=== PATIENT | female | born 1930 | race Caucasian/White ===

== ENCOUNTER 2017-05-19 09:49 | Inpatient (IN) | payer OTHER ==
--- NOTE | 2017-05-19 10:44 | PDOC ---
History of Present Illness <Nasrin Ayoub - Last Filed: 05/19/17 11:17> - General History Source: Patient Exam Limitations: No Limitations <Eddi Nance - Last Filed: 05/19/17 12:40> - General Chief Complaint: Injury Stated Complaint: FALL Time Seen by Provider: 05/19/17 09:56 Past History <Nasrin Ayoub - Last Filed: 05/19/17 11:17> - Past Medical History Anemia: Yes Cancer: Yes (myelodysplastic syndrome) COPD: Yes Psychiatric Problems: Yes (anxeity,depression) - Suicide/Smoking/Psychosocial Hx Smoking History: Unknown if ever smoked Information on smoking cessation initiated: No Hx Alcohol Use: No Drug/Substance Use Hx: No Substance Use Type: None <Eddi Nance - Last Filed: 05/19/17 12:40> - Past Medical History Allergies/Adverse Reactions: Allergies Allergy/AdvReac Type Severity Reaction Status Date / Time No Known Allergies Allergy Verified 05/19/17 10:01 Home Medications: Ambulatory Orders Acetaminophen [Tylenol] 650 mg PO Q6H PRN 05/19/17 Alprazolam [Xanax] 0.25 mg PO Q8H 05/19/17 Budesonide [Pulmicort 0.5 mg Nebulizer -] 1 neb NEB BID 05/19/17 Citalopram Hydrobromide [Celexa -] 5 mg PO BID 05/19/17 Ipratropium [place] [Atrovent Hfa] 2 puff IH BID 05/19/17 Metolazone [Zaroxolyn -] 5 mg PO WE 05/19/17 Potassium Chloride [K-Dur -] 10 meq PO DAILY 05/19/17 Torsemide [Demadex] 10 mg PO DAILY 05/19/17 Review of Systems - Review of Systems Comments:: 05/19/17 11:17 GENERAL/CONSTITUTIONAL: No fever or chills. HEAD, EYES, EARS, NOSE AND THROAT: No change in vision. No ear pain or discharge. No sore throat. CARDIOVASCULAR: No chest pain. +shortness of breath. RESPIRATORY: No cough, wheezing, or hemoptysis. GASTROINTESTINAL: No nausea, vomiting, diarrhea or constipation. GENITOURINARY: No dysuria, frequency, or change in urination. MUSCULOSKELETAL: No joint or muscle swelling or pain. No neck or back pain. SKIN: No rash NEUROLOGIC: No headache, vertigo, loss of consciousness, or change in strength/ sensation. ENDOCRINE: No increased thirst. No abnormal weight change. HEMATOLOGIC/LYMPHATIC: +anemia. ALLERGIC/IMMUNOLOGIC: No hives or skin allergy. <Nasrin Ayoub - Last Filed: 05/19/17 11:17> *Physical Exam - Vital Signs Last Vital Signs Temp Pulse Resp BP Pulse Ox 97.9 F 70 22 123/65 92 L 05/19/17 10:01 05/19/17 10:01 05/19/17 10:01 05/19/17 10:01 05/19/17 10:01 - Physical Exam Comments: 05/19/17 11:15 GENERAL: AAO x2 to name and herself. HEAD: No signs of trauma EYES: PERRLA, EOMI, sclera anicteric, conjunctiva clear ENT:. Dry mucosa NECK: Normal ROM, supple, JVD, or masses LUNGS: Diffuse rales bilaterally. Mildly tachypneic - rr 20s HEART, large systolic murmur. ABDOMEN: Soft, nontender. No guarding, no rebound. No masses EXTREMITIES: No edema. No clubbing or cyanosis. No cords, erythema, or tenderness SKIN: Warm, Dry, normal turgor, no rashes or lesions noted. <Nasrin Ayoub - Last Filed: 05/19/17 11:17> - Vital Signs Last Vital Signs Temp Pulse Resp BP Pulse Ox 97.9 F 70 22 123/65 92 L 05/19/17 10:01 05/19/17 10:01 05/19/17 10:01 05/19/17 10:01 05/19/17 10:01 <Eddi Nance - Last Filed: 05/19/17 12:40> Heart Score/ECG Review #1 ECG reviewed & interpreted by me at: 10:05 05/19/17 10:50 Junctional rhythm 65, right axis deviation, RVH, nonspecific ST and T wave abnormality, no TRAVIS/STD, QTC 395 msec <Eddi Nance - Last Filed: 05/19/17 12:40> ED Treatment Course - LABORATORY CBC & Chemistry Diagram: 05/19/17 10:55 05/19/17 10:55 - RADIOLOGY Radiology Studies Ordered: Category Date Time Status CHEST X-RAY PORTABLE* [RAD] Stat Radiology 05/19/17 10:41 Ordered <Eddi Nance - Last Filed: 05/19/17 12:40> Medical Decision Making - Medical Decision Making 05/19/17 10:43 A portion of this note was documented by scribe services under my direction. I have reviewed the details of the note, within reason, and agree with the documentation with the following case summary and management plan written by me. Patient treated in the ED. Nursing notes are reviewed and incorporated into the medical decision-making. Vital signs reviewed. Peripheral IV access obtained by the nurse, laboratory studies are drawn and sent, reviewed and interpreted by myself. Vital Signs Temp Pulse Resp BP Pulse Ox 97.9 F 70 22 123/65 92 L 05/19/17 10:01 05/19/17 10:01 05/19/17 10:01 05/19/17 10:01 05/19/17 10:01 86 yo F c/ hx MDS, CHF, COPD, anemia with multiple transfusions, UTI, leukopenia , symptomatic anemia Presents from assisted, [facility], for 2 days or shortness of breath and fall. The patient typically is most aware 2-4 L of nasal cannula. However, the last 2 days, the patient has been increasingly more short of breath. The obtain a chest x-ray on Saturday but the patient's son is not aware the results. Noted yesterday, the patient fell and again was found on the ground today area patient herself has some memory impairment and is AAO 2, alert herself and location. The patient reports that she feels anxious but denies any pain or headache at this time. She does report feel short of breath and speak a few sentences. Denies fevers or chills. As of note, the patient was recently hospitalized at [facility] in the beginning of May 2017, she was admitted for anemia and was given a blood transfusion. The patient was also diagnosed urine tract infection and has been placed on antibiotics. Since then, the patient was transferred to stay at the assisted. I had spoken to the patient's son, Brett, who states that the patient is DNR and DNI. We'll work this patient up for CHF exacerbation, rule out myocardial infarction, less likely COPD. We'll also need to value for symptomatically anemia, which after discussion of risks and benefits, the patient's son has consented for blood transfusion if necessary. Ultimately, the patient be mid to the hospital. We'll obtain a head CT to rule out any intracranial injury. 05/19/17 12:[address] reviewed. No acute pathology. Chest x-ray reviewed. Large heart and congestive changes pleural effusion. Possible retrocardiac infiltrate. 05/19/17 12:37 CBC, BMP 05/19/17 10:55 05/19/17 10:55 CMP Sodium 143 mmol/L (136-145) 05/19/17 10:55 Potassium 4.7 mmol/L (3.5-5.1) 05/19/17 10:55 Chloride 103 mmol/L (98-107) 05/19/17 10:55 Carbon Dioxide 35 mmol/L (21-32) H 05/19/17 10:55 Anion Gap 5 (8-16) L 05/19/17 10:55 BUN 45 mg/dL (7-18) H 05/19/17 10:55 Creatinine 1.2 mg/dL (0.55-1.02) H 05/19/17 10:55 Creat Clearance w eGFR 42.40 (>60) 05/19/17 10:55 Random Glucose 110 mg/dL (74-106) H 05/19/17 10:55 Lactic Acid 1.4 mmol/L (0.0-2.0) 05/19/17 10:55 Calcium 8.6 mg/dL (8.5-10.1) 05/19/17 10:55 Phosphorus 3.9 mg/dL (2.5-4.9) 05/19/17 10:55 Magnesium 2.2 mg/dL (1.8-2.4) 05/19/17 10:55 Total Bilirubin 0.4 mg/dL (0.2-1.0) 05/19/17 10:55 AST 19 U/L (15-37) 05/19/17 10:55 ALT 15 U/L (12-78) 05/19/17 10:55 Alkaline Phosphatase 62 U/L (45-117) 05/19/17 10:55 Creatine Kinase 49 IU/L (26-192) 05/19/17 10:55 Troponin I 0.02 ng/ml (0.00-0.05) 05/19/17 10:55 B-Natriuretic Peptide 9544.70 pg/ml (5-450) H 05/19/17 10:55 Total Protein 7.4 g/dl (6.4-8.2) 05/19/17 10:55 Albumin 3.2 g/dl (3.4-5.0) L 05/19/17 10:55 Urine Test Results Urine Color Ltyellow 05/19/17 11:21 Urine Appearance Slcloudy 05/19/17 11:21 Urine pH 5.0 (5.0-8.0) 05/19/17 11:21 Ur Specific [place] 1.012 (1.001-1.035) 05/19/17 11:21 Urine Protein Negative (NEGATIVE) 05/19/17 11:21 Urine Glucose (UA) 1+ (NEGATIVE) H 05/19/17 11:21 Urine Ketones Negative (NEGATIVE) 05/19/17 11:21 Urine Blood 1+ (NEGATIVE) H 05/19/17 11:21 Urine Nitrite Negative (NEGATIVE) 05/19/17 11:21 Urine Bilirubin Negative (NEGATIVE) 05/19/17 11:21 Ur Leukocyte Esterase Negative (NEGATIVE) 05/19/17 11:21 Ur Epithelial Cells Rare /HPF (FEW) 05/19/17 11:21 Urine Mucus Rare 05/19/17 11:21 Patient's venous gas demonstrates hypercarbic acidosis. Given her history of COPD, vancomycin, Zosyn, Solu-Medrol, albuterol was given. In addition, infiltrate may potentially reflect pneumonia. Patient was deferred on given IV Lasix given her severe aortic stenosis and the patient may potentially be preload dependent. We'll defer on inpatient team and cardiology to make decision regarding diuresis. Head CT is negative. Case was discussed with Dr. Gómez accepts the patient for telemetry admission. Case discussed in detail with admitting physician including history, physical exam and ancillary studies. Admitting physician has assumed care for the patient, will follow all pending diagnostics and will complete the evaluation and treatment. <Eddi Nance - Last Filed: 05/19/17 12:40> *DC/Admit/Observation/Transfer <Nasrin Ayoub - Last Filed: 05/19/17 11:17> - Discharge Dispostion Admit: Yes <Eddi Nance - Last Filed: 05/19/17 12:40> Diagnosis at time of Disposition: CHF (congestive heart failure) Qualifiers: Heart failure type: unspecified Heart failure chronicity: unspecified Qualified Code(s): I50.9 - Heart failure, unspecified COPD (chronic obstructive pulmonary disease) Qualifiers: COPD type: unspecified COPD Qualified Code(s): J44.9 - Chronic obstructive pulmonary disease, unspecified Aortic stenosis Qualifiers: Cardiac valve disease etiology: etiology unspecified Qualified Code(s): I35.0 - Nonrheumatic aortic (valve) stenosis Pneumonia Qualifiers: Pneumonia type: due to unspecified organism Laterality: unspecified laterality Lung location: unspecified part of lung Qualified Code(s): J18.9 - Pneumonia, unspecified organism - Discharge Dispostion Condition at time of disposition: Guarded
[2017-05-19 11:29] LABS: BASO % 1.7 % (0-2.0); EOS % 0.7 % (0-4.5); HEMATOCRIT 26.9 % (32.4-45.2); HEMOGLOBIN 8.3 GM/dL (10.7-15.3); LYMPH % 8.2 % (8-40); MCH 26.7 pg (25.7-33.7); MEAN CELL VOLUME 86.2 fl (80-96); MEAN PLT VOLUME 8.3 fl (7.5-11.1); MONO % 12.7 % (3.8-10.2); NEUT % 76.7 % (42.8-82.8); PLATELET COUNT 235 K/MM3 (134-434); RBC 3.12 M/mm3 (3.60-5.2); RDW 19.3 % (11.6-15.6); WHITE BLOOD COUNT 4.9 K/mm3 (4.0-10.0)
[2017-05-19 11:32] LABS: URINE APPEARANCE SLCLOUDY; URINE BILIRUBIN NEGATIVE (NEGATIVE); URINE BLOOD 1+ (NEGATIVE); URINE COLOR LTYELLOW; URINE GLUCOSE (UA) 1+ (NEGATIVE); URINE KETONE NEGATIVE (NEGATIVE); URINE LEUK ESTERASE NEGATIVE (NEGATIVE); URINE NITRITE NEGATIVE (NEGATIVE); URINE PROTEIN NEGATIVE (NEGATIVE)
[2017-05-19 11:40] LABS: VENOUS PC02 81.9 mmHg (38-52); VENOUS PH 7.25 (7.32-7.42); VENOUS PO2 31.5 mmHg (28-48)
[2017-05-19 11:42] LABS: INR 1.16 (0.82-1.09); PROTHROMBIN TIME (PATIENT) 13.1 SEC (9.98-11.88)
[2017-05-19 11:43] LABS: EPI CELLS RARE /HPF (FEW); URINE HYALINE CAST 22 /lpf; URINE MUCUS RARE
[2017-05-19 11:45] LABS: ACTIVATED PTT 32.5 SECONDS (26.9-34.4)
[2017-05-19] MEDS ORDERED: ALBUTEROL SO4 0.083% IH SOL 2.5 MG/3 ML VIAL.NEB. NEB ONE ×2 (11:51→11:55)
[2017-05-19] MEDS ORDERED: methylPREDNISolone NA SUCC 125 MG/2 ML VIAL IVPB ONE (11:51)
[2017-05-19 11:53] LABS: ALBUMIN 3.2 g/dl (3.4-5.0); ANION GAP 5 (8-16); BILIRUBIN,TOTAL 0.4 mg/dL (0.2-1.0); BLOOD UREA NITROGEN 45 mg/dL (7-18); CALCIUM 8.6 mg/dL (8.5-10.1); CHLORIDE 103 mmol/L (98-107); CO2 35 mmol/L (21-32); CREATININE 1.2 mg/dL (0.55-1.02); GLUCOSE,RANDOM 110 mg/dL (74-106); MAGNESIUM 2.2 mg/dL (1.8-2.4); PHOSPHOROUS 3.9 mg/dL (2.5-4.9); POTASSIUM 4.7 mmol/L (3.5-5.1); SGOT/AST 19 U/L (15-37); SGPT/ALT 15 U/L (12-78); SODIUM 143 mmol/L (136-145); TOT PROT 7.4 g/dl (6.4-8.2)
[2017-05-19 11:55] LABS: ALK PHOS 62 U/L (45-117)
[2017-05-19] MEDS ORDERED: VANCOMYCIN 1,000 MG in DEXTROSE 5%-WATER - 250 ML IVPB ONE (11:55)
[2017-05-19] MEDS ORDERED: methylPREDNISolone NA SUCC 125 MG/2 ML VIAL ONE (11:56)
[2017-05-19] MEDS ORDERED: VANCOMYCIN 1 GRAM (PRE-DOCKED) 1,000 MG/250 ML BAG IVPB ONE (11:56)
[2017-05-19] MEDS ORDERED: PIPERACILLIN/TAZOB 3.375 GM 3.375 GM/50 ML BAG IVPB ONE (11:56)
[2017-05-19] MEDS ORDERED: PIPERACIL/TAZOB 3.375 GM 3.375 GM/50 ML PREMIX IVPB ONE (12:30)
--- NOTE | 2017-05-19 15:42 | HP ---
CHIEF COMPLAINT: Shortness of breath PCP: Dr. Esteban Roblero, [place] Heme/Onc: Dr. Coreas HISTORY OF PRESENT ILLNESS: 86 year-old female with a PMH significant for diastolic heart failure, severe aortic stenosis, COPD, myelodysplastic syndrome (multiple transfusions, most recent 05/02/[address], [facility]), recurrent UTIs, anxiety and depression. Hospitalized at [facility] first week of this month, then at [facility] for one week. Over the past two days she has been experiencing increased SOB and has had three falls according to her son. ER course was notable for: (1) SpO2 92% room air (2) CXR: congestive changes, possible infiltrate left base, bilateral pleural effusions (3) BNP 9544 Recent Travel: No PAST MEDICAL HISTORY: Diastolic heart failure Severe aortic stenosis COPD Anemia s/p multiple transfusions Myelodysplastic syndrome Recurrent UTIs PAST SURGICAL HISTORY: Social History: Smoking: quit 6 years ago Alcohol: no Drugs: no Family History: Allergies No Known Allergies Allergy (Verified 05/19/17 10:01) HOME MEDICATIONS: Home Medications Medication Instructions Recorded Acetaminophen [Tylenol] 650 mg PO Q6H PRN 05/19/17 Alprazolam [Xanax] 0.25 mg PO Q8H 05/19/17 Budesonide [Pulmicort 0.5 mg 1 neb NEB BID 05/19/17 Nebulizer -] Citalopram Hydrobromide [Celexa -] 5 mg PO BID 05/19/17 Ipratropium [place] [Atrovent Hfa] 2 puff IH BID 05/19/17 Metolazone [Zaroxolyn -] 5 mg PO WE 05/19/17 Potassium Chloride [K-Dur -] 10 meq PO DAILY 05/19/17 Torsemide [Demadex] 10 mg PO DAILY 05/19/17 REVIEW OF SYSTEMS CONSTITUTIONAL: Absent: fever, chills, diaphoresis, generalized weakness, malaise, loss of appetite, weight change HEENT: Absent: rhinorrhea, nasal congestion, throat pain, throat swelling, difficulty swallowing, mouth swelling, ear pain, eye pain, visual changes CARDIOVASCULAR: Absent: chest pain, syncope, palpitations, irregular heart rate, lightheadedness , peripheral edema RESPIRATORY: Absent: cough, shortness of breath, dyspnea with exertion, orthopnea, wheezing, stridor, hemoptysis GASTROINTESTINAL: Absent: abdominal pain, abdominal distension, nausea, vomiting, diarrhea, constipation, melena, hematochezia GENITOURINARY: Absent: dysuria, frequency, urgency, hesitancy, hematuria, flank pain, genital pain MUSCULOSKELETAL: Absent: myalgia, arthralgia, joint swelling, back pain, neck pain SKIN: Absent: rash, itching, pallor HEMATOLOGIC/IMMUNOLOGIC: Absent: easy bleeding, easy bruising, lymphadenopathy, frequent infections ENDOCRINE: Absent: unexplained weight gain, unexplained weight loss, heat intolerance, cold intolerance NEUROLOGIC: Absent: headache, focal weakness or paresthesias, dizziness, unsteady gait, seizure, mental status changes, bladder or bowel incontinence PSYCHIATRIC: Absent: anxiety, depression, suicidal or homicidal ideation, hallucinations. PHYSICAL EXAMINATION Vital Signs - 24 hr 05/19/17 05/19/17 05/19/17 10:01 10:15 13:17 Temperature 97.9 F Pulse Rate 70 Pulse Rate [ 62 Apical] Respiratory 22 20 Rate Blood Pressure 123/65 Blood Pressure 135/62 [Left Arm] O2 Sat by Pulse 92 L 93 L 93 L Oximetry (%) GENERAL: Awake, alert, and fully oriented, in no acute distress. HEAD: Normal with no signs of trauma. EYES: Pupils equal, round and reactive to light, extraocular movements intact, sclera anicteric, conjunctiva clear. No lid lag. EARS, NOSE, THROAT: Ears normal, nares patent, oropharynx clear without exudates. Moist mucous membranes. NECK: Normal range of motion, supple without lymphadenopathy, JVD, or masses. LUNGS: Breath sounds equal, clear to auscultation bilaterally. No wheezes, and no crackles. No accessory muscle use. HEART: Regular rate and rhythm, normal S1 and S2 without murmur, rub or gallop. ABDOMEN: Soft, nontender, not distended, normoactive bowel sounds, no guarding, no rebound, no masses. No hepatomegaly or splenomegaly. MUSCULOSKELETAL: Normal range of motion at all joints. No bony deformities or tenderness. No CVA tenderness. UPPER EXTREMITIES: 2+ pulses, warm, well-perfused. No cyanosis. No clubbing. No peripheral edema. LOWER EXTREMITIES: 2+ pulses, warm, well-perfused. No calf tenderness. Trace bilateral edema NEUROLOGICAL: Cranial nerves II-XII intact. Normal speech. Normal gait. PSYCHIATRIC: Cooperative. Good eye contact. Appropriate mood and affect. SKIN: Warm, dry, normal turgor, no rashes or lesions noted, normal capillary refill. Laboratory Results - last 24 hr 05/19/17 05/19/17 05/19/17 10:55 10:55 10:55 WBC 4.9 RBC 3.12 L Hgb 8.3 L Hct 26.9 L MCV 86.2 MCH 26.7 MCHC 31.0 L RDW 19.3 H Plt Count 235 MPV 8.3 Neutrophils % 76.7 Lymphocytes % 8.2 Monocytes % 12.7 H Eosinophils % 0.7 Basophils % 1.7 PT with INR 13.10 H INR 1.16 H PTT (Actin FS) 32.5 VBG pH POC VBG pCO2 POC VBG pO2 Mixed VBG HCO3 Sodium 143 Potassium 4.7 Chloride 103 Carbon Dioxide 35 H Anion Gap 5 L BUN 45 H Creatinine 1.2 H Creat Clearance w eGFR 42.40 Random Glucose 110 H Lactic Acid Calcium 8.6 Phosphorus 3.9 Magnesium 2.2 Total Bilirubin 0.4 AST 19 ALT 15 Alkaline Phosphatase 62 Creatine Kinase 49 Troponin I 0.02 B-Natriuretic Peptide 9544.70 H Total Protein 7.4 Albumin 3.2 L Urine Color Urine Appearance Urine pH Ur Specific [place] Urine Protein Urine Glucose (UA) Urine Ketones Urine Blood Urine Nitrite Urine Bilirubin Urine Urobilinogen Ur Leukocyte Esterase Urine WBC (Auto) Urine RBC (Auto) Ur Epithelial Cells Hyaline Casts Urine Mucus Blood Type Antibody Screen 05/19/17 05/19/17 05/19/17 10:55 10:55 10:55 WBC RBC Hgb Hct MCV MCH MCHC RDW Plt Count MPV Neutrophils % Lymphocytes % Monocytes % Eosinophils % Basophils % PT with INR INR PTT (Actin FS) VBG pH 7.25 L POC VBG pCO2 81.9 H* POC VBG pO2 31.5 Mixed VBG HCO3 34.5 H Sodium Potassium Chloride Carbon Dioxide Anion Gap BUN Creatinine Creat Clearance w eGFR Random Glucose Lactic Acid 1.4 Calcium Phosphorus Magnesium Total Bilirubin AST ALT Alkaline Phosphatase Creatine Kinase Troponin I B-Natriuretic Peptide Total Protein Albumin Urine Color Urine Appearance Urine pH Ur Specific [place] Urine Protein Urine Glucose (UA) Urine Ketones Urine Blood Urine Nitrite Urine Bilirubin Urine Urobilinogen Ur Leukocyte Esterase Urine WBC (Auto) Urine RBC (Auto) Ur Epithelial Cells Hyaline Casts Urine Mucus Blood Type A POSITIVE Antibody Screen Negative 05/19/17 11:21 WBC RBC Hgb Hct MCV MCH MCHC RDW Plt Count MPV Neutrophils % Lymphocytes % Monocytes % Eosinophils % Basophils % PT with INR INR PTT (Actin FS) VBG pH POC VBG pCO2 POC VBG pO2 Mixed VBG HCO3 Sodium Potassium Chloride Carbon Dioxide Anion Gap BUN Creatinine Creat Clearance w eGFR Random Glucose Lactic Acid Calcium Phosphorus Magnesium Total Bilirubin AST ALT Alkaline Phosphatase Creatine Kinase Troponin I B-Natriuretic Peptide Total Protein Albumin Urine Color Ltyellow Urine Appearance Slcloudy Urine pH 5.0 Ur Specific [place] 1.012 Urine Protein Negative Urine Glucose (UA) 1+ H Urine Ketones Negative Urine Blood 1+ H Urine Nitrite Negative Urine Bilirubin Negative Urine Urobilinogen 2.0 H Ur Leukocyte Esterase Negative Urine WBC (Auto) 1 Urine RBC (Auto) 1 Ur Epithelial Cells Rare Hyaline Casts 22 Urine Mucus Rare Blood Type Antibody Screen ASSESSMENT/PLAN: 86 year-old female with a PMH significant for heart failure, COPD, anemia requiring multiple transfusions, myelodysplastic syndrome, recurrent UTIs, anxiety and depression. Admitted for respiratory failure, acute on chronic diastolic heart failure, newly diagnosed afib, possible pneumonia. Hypercapneic hypoxic respiratory failure --multifactorial: heart failure v. pneumonia v. COPD --AB.32/67.5/55/86% on 3L; RR 50 --start BiPAP Acute on chronic diastolic heart failure Severe aortic stenosis --congestive changes and pleural fluid on CXR --BNP 9544 --Echo ordered --Lasix IV 40mg x 1; welsh; strict I&Os; daily weights --cardiology consult Newly diagnosed atrial fibrillation --per son, no previous history but he does recall patient being on coumadin for a short period of time 3 years ago?? --need to reach PCP/get [facility] records in morning for better history --heparin drip started r/o Pneumonia --CXR: questionable infiltrate left base --hospitalized within the last three weeks --vanc x 1 and zosyn x 1 in ED --afebrile, no leukocytosis; no further abx for now --ID consult COPD --duonebs Myelodysplastic syndrome Anemia --Hgb 8.3, baseline not known --need to review records Recurrent UTIs --UA negative Anxiety/depression --celexa, xanax 0.25mg TID PRN FEN Fluids: PO intake adequate Electrolytes: replete as indicated Nutrition: NPO for now pending improvement in respiratory status DVT prophylaxis: heparin drip Physical therapy Dispo: continues to require inpatient care. DNR/DNI. Arden West is HCP. Visit type - Emergency Visit Emergency Visit: Yes ED Registration Date: 05/19/17 Care time: The patient presented to the Emergency Department on the above date and was hospitalized for further evaluation of their emergent condition. - New Patient This patient is new to me today: Yes Date on this admission: 05/19/17 - Critical Care Critical Care patient: Yes Total Critical Care Time (in minutes): 90 Critical Care Statement: The care of this patient involved high complexity decision making to prevent further life threatening deterioration of the patient 's condition and/or to evaluate & treat vital organ system(s) failure or risk of failure. Hospitalist Screening - Colonoscopy Questionnaire Colonoscopy Questionnaire: Colonoscopy Questionnaire - Patient: 50 - 75 years old and never had a screening colonoscopy: No History of colon or rectal polyps, or CA: No History of IBD, Crohn's disease or UC: No History of abdominal radiation therapy as a child: No - Relative: 1 with colon or rectal CA, or polyps at age 60 or younger: No Colon or rectal CA diagnosed at age 45 or younger: No Multiple relatives with colon or rectal CA: No - Outcome: Screening Result: Negative Screen
[2017-05-19 15:52] VITALS: BMI 21.9
[2017-05-19] MEDS ORDERED: ALBUTEROL SO4 2.5/IPRATROPIUM 0.5 INH SOL 3 ML VIAL.NEB. NEB STA (16:21)
[2017-05-19 17:00] LABS: ARTERIAL BLD GAS O2 SATURATION 86.7 % (90-98.9); ARTERIAL BLOOD GAS BASE EXCESS 6.1 meq/l (-2-2); ARTERIAL BLOOD GAS PO2 55.3 mmHg (68-100); ARTERIAL BLOOD GAS pH 7.32 (7.35-7.45)
[2017-05-19 17:02] LABS: ALLENS TEST POSITIVE
[2017-05-19] MEDS ORDERED: FUROSEMIDE 40 MG/4 ML INJECTABLE VIAL IVPUSH ONE (17:06)
[2017-05-19 17:13] LABS: ARTERIAL BLOOD GAS PCO2 67.5 mmHg (35-45)
[2017-05-19] MEDS: ALPRAZolam 0.25 MG TABLET PO SCH ×2 (17:15→22:00)
--- NOTE | 2017-05-19 17:36 | EKG ---
Test Reason : Blood Pressure : / mmHG Vent. Rate : 065 BPM Atrial Rate : 258 BPM P-R Int : 000 ms QRS Dur : 088 ms QT Int : 380 ms P-R-T Axes : 000 149 -16 degrees QTc Int : 395 ms ;UNDETERMINED RHYTHM; R/O ATRIAL FIBRILLATION WITH SLOW VENTRICULAR RESPONSE.; OCCASIONAL PVCS. BASELINE ARTIFACT. RIGHT AXIS DEVIATION POSSIBLE RIGHT VENTRICULAR HYPERTROPHY NONSPECIFIC ST AND T WAVE ABNORMALITY ABNORMAL ECG NO PREVIOUS ECGS AVAILABLE Confirmed by SEBASTIÁN MACK MD ([id number]) on 05/19/2017 5:35:35 PM Referred By: Confirmed By:SEBASTIÁN MACK MD
[2017-05-19] MEDS ORDERED: HEPARIN NA (PORCINE) 5,000 UNITS/ML 1ML VIAL IVPUSH PRN ×2 (18:41)
[2017-05-19] MEDS ORDERED: HEPARIN NA (PORCINE) 5,000 UNITS/ML 1ML VIAL IVPUSH STA (18:43)
[2017-05-19] MEDS ORDERED: HEPARIN INFUSION - 25,000 UNITS/500 ML INFUS.BAG IVPB SCH (18:45)
[2017-05-19] MEDS: ALBUTEROL SO4 2.5/IPRATROPIUM 0.5 INH SOL 3 ML VIAL.NEB. NEB SCH ×2 (20:35→23:51)
[2017-05-19 20:52] LABS: ARTERIAL BLD GAS O2 SATURATION 98.6 % (90-98.9); ARTERIAL BLOOD GAS BASE EXCESS 6.5 meq/l (-2-2); ARTERIAL BLOOD GAS PCO2 74.9 mmHg (35-45); ARTERIAL BLOOD GAS pH 7.28 (7.35-7.45)
[2017-05-19 20:54] LABS: ALLENS TEST POSITIVE
[2017-05-19] MEDS ORDERED: HEPARIN NA (PORCINE) 5,000 UNITS/ML 1ML VIAL SQ SCH (22:00)
[2017-05-19] MEDS: CITALOPRAM HYDROBROMIDE 10 MG TABLET (FP) PO SCH (22:00)
[2017-05-19 23:22] LABS: ARTERIAL BLD GAS O2 SATURATION 98.2 % (90-98.9); ARTERIAL BLOOD GAS BASE EXCESS 6.8 meq/l (-2-2); ARTERIAL BLOOD GAS pH 7.27 (7.35-7.45)
[2017-05-19 23:24] LABS: ALLENS TEST POSITIVE
[2017-05-19 23:29] LABS: ARTERIAL BLOOD GAS PCO2 77.1 mmHg (35-45)
[2017-05-20] MEDS: ALPRAZolam 0.25 MG TABLET PO SCH ×4 (01:08→21:04)
[2017-05-20] MEDS: ALBUTEROL SO4 2.5/IPRATROPIUM 0.5 INH SOL 3 ML VIAL.NEB. NEB SCH ×5 (04:25→20:40)
[2017-05-20 07:55] LABS: BASO % 0.5 % (0-2.0); EOS % 0.1 % (0-4.5); HEMATOCRIT 23.8 % (32.4-45.2); HEMOGLOBIN 7.5 GM/dL (10.7-15.3); LYMPH % 8.3 % (8-40); MCH 26.9 pg (25.7-33.7); MCHC 31.7 g/dl (32.0-36.0); MEAN PLT VOLUME 8.5 fl (7.5-11.1); MONO % 8.7 % (3.8-10.2); NEUT % 82.4 % (42.8-82.8); PLATELET COUNT 259 K/MM3 (134-434); RDW 18.9 % (11.6-15.6); WHITE BLOOD COUNT 4.6 K/mm3 (4.0-10.0)
[2017-05-20 08:37] LABS: ANION GAP 9 (8-16); BLOOD UREA NITROGEN 48 mg/dL (7-18); CALCIUM 8.8 mg/dL (8.5-10.1); CHLORIDE 99 mmol/L (98-107); CO2 35 mmol/L (21-32); GLUCOSE,RANDOM 80 mg/dL (74-106); MAGNESIUM 2.4 mg/dL (1.8-2.4); POTASSIUM 4.8 mmol/L (3.5-5.1); SODIUM 143 mmol/L (136-145)
[2017-05-20 08:43] LABS: ALBUMIN 2.9 g/dl (3.4-5.0); ALK PHOS 53 U/L (45-117); BILIRUBIN,TOTAL 0.5 mg/dL (0.2-1.0); CREATININE 1.3 mg/dL (0.55-1.02); PHOSPHOROUS 4.6 mg/dL (2.5-4.9); SGOT/AST 14 U/L (15-37); SGPT/ALT 8 U/L (12-78); TOT PROT 6.6 g/dl (6.4-8.2)
--- NOTE | 2017-05-20 10:10 | EKG ---
Test Reason : Blood Pressure : / mmHG Vent. Rate : 070 BPM Atrial Rate : 057 BPM P-R Int : 000 ms QRS Dur : 096 ms QT Int : 406 ms P-R-T Axes : 000 147 -08 degrees QTc Int : 438 ms ATRIAL FIBRILLATION WITH PREMATURE VENTRICULAR OR ABERRANTLY CONDUCTED COMPLEXES RIGHT AXIS DEVIATION INCOMPLETE RIGHT BUNDLE BRANCH BLOCK RIGHT VENTRICULAR HYPERTROPHY WITH REPOLARIZATION ABNORMALITY ABNORMAL QRS-T ANGLE, CONSIDER PRIMARY T WAVE ABNORMALITY ABNORMAL ECG WHEN COMPARED WITH ECG OF 19-MAY-2017 10:03, PREVIOUS ECG HAS UNDETERMINED RHYTHM, NEEDS REVIEW NONSPECIFIC T WAVE ABNORMALITY NO LONGER EVIDENT IN LATERAL LEADS Confirmed by SCAR ALCANTARA MD ([id number]) on 05/20/2017 10:09:57 AM Referred By: [facility] Confirmed By:SCAR ALCANTARA MD
--- NOTE | 2017-05-20 11:38 | CON.CARD ---
Consult Consult Specialty:: Cardiology Referred by:: Hospitalist Medicine Reason for Consultation:: CHF, Afib - History of Present Illness Chief Complaint: Dyspnea History of Present Illness: Dr. Esteban Roblero, [place] Heme/Onc: Dr. Coreas HISTORY OF PRESENT ILLNESS: 86 year-old female with a PMH significant for diastolic heart failure, atrial fibrillation, COPD, myelodysplastic syndrome (multiple transfusions, most recent 05/02/2017, [facility]), recurrent UTIs, anxiety and depression. Hospitalized at [facility] first week of this month, then at [facility] for one week. Over the past two days she has been experiencing increased SOB and has had three falls according to her son, denies palpitations, near or true syncope. ER course was notable for: (1) SpO2 92% room air (2) CXR: congestive changes, possible infiltrate left base, bilateral pleural effusions (3) BNP 9544 Recent Travel: No PAST MEDICAL HISTORY: Diastolic heart failure Severe aortic stenosis COPD Anemia s/p multiple transfusions Myelodysplastic syndrome Recurrent UTIs PAST SURGICAL HISTORY: Social History: Smoking: quit 6 years ago Alcohol: no Drugs: no Family History: Allergies No Known Allergies Allergy (Verified 05/19/17 10:01) - History Source History Provided By: Patient Limitations to Obtaining History: No Limitations - Alcohol/Substance Use Hx Alcohol Use: No - Smoking History Smoking history: Unknown if ever smoked Home Medications - Allergies Allergies/Adverse Reactions: Allergies Allergy/AdvReac Type Severity Reaction Status Date / Time No Known Allergies Allergy Verified 05/19/17 10:01 - Home Medications Home Medications: Ambulatory Orders Acetaminophen [Tylenol] 650 mg PO Q6H PRN 05/19/17 Alprazolam [Xanax] 0.25 mg PO Q8H 05/19/17 Budesonide [Pulmicort 0.5 mg Nebulizer -] 1 neb NEB BID 05/19/17 Citalopram Hydrobromide [Celexa -] 5 mg PO BID 05/19/17 Ipratropium [place] [Atrovent Hfa] 2 puff IH BID 05/19/17 Metolazone [Zaroxolyn -] 5 mg PO WE 05/19/17 Potassium Chloride [K-Dur -] 10 meq PO DAILY 05/19/17 Torsemide [Demadex] 10 mg PO DAILY 05/19/17 Review of Systems - Review of Systems Respiratory: reports: SOB Vital Signs: Vital Signs Temperature 98.2 F 05/20/17 10:00 Pulse Rate 67 05/20/17 10:00 Respiratory Rate 18 05/20/17 10:00 Blood Pressure 105/52 05/20/17 10:00 O2 Sat by Pulse Oximetry (%) 94 L 05/20/17 10:00 Constitutional: Yes: No Distress, Calm, Thin Neck: Yes: Supple Respiratory: Yes: Regular, Diminished, On Nasal O2 Gastrointestinal: Yes: Normal Bowel Sounds, Soft Cardiovascular: Yes: Pulse Irregular JVD: No Carotid Bruit: No Heart Sounds: Yes: S1, S2 Murmur: Yes: Systolic Murmur, Grade 2 Edema: No - Other Data Labs, Other Data: CBC, BMP 05/20/17 07:30 05/20/17 07:30 INR, PTT INR 1.16 (0.82-1.09) H 05/19/17 10:55 Troponin, BNP 05/19/17 10:55 Troponin I 0.02 B-Natriuretic Peptide 9544.70 H Troponin, BNP 05/19/17 10:55 Troponin I 0.02 B-Natriuretic Peptide 9544.70 H Afib @ 70 PVC, RAD, IRBBB Imaging - Results Chest X-ray: Report Reviewed (Congestion with right pleural effusion) Problem List - Problems (1) Atrial fibrillation with normal ventricular rate Code(s): I48.91 - UNSPECIFIED ATRIAL FIBRILLATION (2) CHF (congestive heart failure) Code(s): I50.9 - HEART FAILURE, UNSPECIFIED Qualifiers: Heart failure type: diastolic Heart failure chronicity: acute on chronic Qualified Code(s): I50.33 - Acute on chronic diastolic (congestive) heart failure (3) COPD (chronic obstructive pulmonary disease) Code(s): J44.9 - CHRONIC OBSTRUCTIVE PULMONARY DISEASE, UNSPECIFIED Qualifiers: COPD type: unspecified COPD Qualified Code(s): J44.9 - Chronic obstructive pulmonary disease, unspecified (4) Pleural effusion due to congestive heart failure Code(s): I50.9 - HEART FAILURE, UNSPECIFIED (5) Myelodysplastic syndrome Code(s): D46.9 - MYELODYSPLASTIC SYNDROME, UNSPECIFIED (6) Anemia Code(s): D64.9 - ANEMIA, UNSPECIFIED Qualifiers: Anemia type: bone marrow failure (7) Acute respiratory failure with hypoxia and hypercapnia Code(s): J96.01 - ACUTE RESPIRATORY FAILURE WITH HYPOXIA; J96.02 - ACUTE RESPIRATORY FAILURE WITH HYPERCAPNIA Assessment/Plan Prelim bedside echo: AV sclerosis, severe TR, RV and RA dilatation, RV 1. Acute Hypercapneic hypoxic respiratory failure referable to 2. Acute on chronic diastolic heart failure, pulm HTN with pleural effusions 3. Persistent atrial fibrillation 4. COPD, r/o PNA 5. Anemia referable to MDS with transfusion need 6. Recurrent UTI P:1. F/u echocardiogram to assess ventricular and valve fxn 2. IV diuresis with monitor diuretic response, renal fxn and electrolytes 3. Start Toprol XL 12.5 qd with uptitration as tolerated 4. Agreed with starting Eliquis 2.5 bid given elevated stroke risk, but chronic anemia due to MDS and fall risk tempers this recommendation 5. BD, O2 as needed, empiric abx course 6. Thank you for consultative opportunity
[2017-05-20] MEDS ORDERED: APIXABAN 2.5 MG TABLET PO SCH (12:15)
--- NOTE | 2017-05-20 12:25 | PN ---
Physical Exam: SUBJECTIVE: Patient seen and examined. She denies sob, she is hungry and thirsty. Granddaughter at bedside states she appears improved pt states she thought she was better. OBJECTIVE: Vital Signs Period Temp Pulse Resp BP Sys/Frank Pulse Ox Last 24 Hr 97.7 F-98.8 F 60-70 18-24 102-149/44-71 91-100 PE Neuro: alert, awake, cn 2-12intact HEENT: central opacity R cornea Pulm: diminished bases rales + nc CV: s1 s2 irregular rate Abd: s nt nd + bs : welsh Ext: no le edema skin: dry Laboratory Results - last 24 hr 05/20/17 05/20/17 07:30 07:30 WBC 4.6 RBC 2.80 L Hgb 7.5 L Hct 23.8 L MCV 85.0 MCH 26.9 MCHC 31.7 L RDW 18.9 H Plt Count 259 MPV 8.5 Neutrophils % 82.4 Lymphocytes % 8.3 Monocytes % 8.7 Eosinophils % 0.1 D Basophils % 0.5 PTT (Actin FS) Anticoagulation Therapy Puncture Site ABG pH ABG pCO2 at Pt Temp ABG pO2 at Pt Temp ABG HCO3 ABG O2 Sat (Measured) ABG O2 Content ABG Base Excess Sarkis Test O2 Delivery Device Oxygen Flow Rate Vent Mode Vent Rate Mechanical Rate Pressure Support Vent Sodium 143 Potassium 4.8 Chloride 99 Carbon Dioxide 35 H Anion Gap 9 BUN 48 H Creatinine 1.3 H Creat Clearance w eGFR 38.66 Random Glucose 80 Calcium 8.8 Phosphorus 4.6 Magnesium 2.4 Total Bilirubin 0.5 D AST 14 L ALT 8 L Alkaline Phosphatase 53 Total Protein 6.6 Albumin 2.9 L Random Vancomycin Blood Type Antibody Screen Active Medications Generic Name Dose Route Start Last Admin Trade Name Freq PRN Reason Stop Dose Admin Albuterol/Ipratropium 1 amp 05/19/17 20:00 05/20/17 08:56 Duoneb - NEB 1 amp Q4H BALA Administration Alprazolam 0.25 mg 05/19/17 16:15 05/20/17 06:53 Xanax - PO 0.25 mg TID BALA Administration Apixaban 2.5 mg 05/20/17 12:15 Eliquis - PO BID BALA Citalopram Hydrobromide 5 mg 05/19/17 22:00 03/18/18 22:00 Celexa - PO Not Given BID [facility] Furosemide 40 mg 05/20/17 12:00 Lasix Injection - IVPUSH DAILY [facility] Heparin Sodium (Porcine) 1,000 unit 05/19/17 18:41 Heparin - IVPUSH PRN PRN Heparin Heparin Sodium (Porcine) 5,000 unit 05/19/17 18:41 Heparin - IVPUSH PRN PRN Heparin Heparin Sodium/Dextrose 25,000 units in 500 mls @ 15.2 mls/hr 05/19/17 18:45 05/19/17 20:36 Heparin Infusion - IVPB 760 units/hr TITR BALA 15.2 mls/hr Protocol Administration 760 UNITS/HR Metoprolol Succinate 12.5 mg 05/20/17 12:00 Toprol Xl - PO DAILY [facility] Assessment: 86 year old female with a PMH significant for heart failure, a fib, COPD, anemia requiring multiple transfusions, myelodysplastic syndrome, recurrent UTIs, anxiety and depression. Admitted for respiratory failure, acute on chronic diastolic heart failure Plan: 1. Hypercapneic hypoxic respiratory failure - ECHO shows pleural effusions - CT chest done, report penidng - Continue NC - Bipap PRN 2. Acute on chronic diastolic heart failure - D/w cardiology pt has aortic sclerosis - Dose lasix 40mg IVP now, monitor daily and for titration - Start metoprolol 12.5mg daily - Maintain welsh 3. Atrial fibrillation - Previous on coumadin, unclear why discontinued, pt denies GI bleed - Pt does not have aortic stenosis - Start eliquis 2.5mg BID - Can stop heparin gtt following first dose 3. r/o Pneumonia - No infectious signs noted - Awaiting CT chest, per echo pleural effusions seen 4. COPD - Duonebs 5. Myelodysplastic syndrome/Anemia - Hgb down today - Will monitor, transfuse for hgb <7 6. Recurrent UTIs - UA negative 7. Anxiety/depression - Celexa, xanax 0.25mg TID PRN 8. DVT - Eliquis 9. Physical therapy; pt reports she is mostly in WC, she will ambulate with walker but is unsteady and weak CODE STATUS DNR/DNI Son Brett is HCP. Visit type - Emergency Visit Emergency Visit: Yes ED Registration Date: 05/19/17 Care time: The patient presented to the Emergency Department on the above date and was hospitalized for further evaluation of their emergent condition. - New Patient This patient is new to me today: Yes Date on this admission: 05/20/17 - Critical Care Critical Care patient: No
[2017-05-20] MEDS: CITALOPRAM HYDROBROMIDE 10 MG TABLET (FP) PO SCH ×2 (12:46→21:03)
[2017-05-20] MEDS: metoPROLOL SUCCINATE 25 MG TAB.SR.24H (FP) PO SCH (12:49)
[2017-05-20] MEDS: FUROSEMIDE 40 MG/4 ML INJECTABLE VIAL IVPUSH SCH (12:49)
[2017-05-20] MEDS: APIXABAN 2.5 MG TABLET PO SCH ×2 (12:49→21:04)
--- NOTE | 2017-05-20 15:12 | PN ---
Progress Note (short form) - Note Progress Note: ID consult dictated imp/reccd 86 year old female with PMH valvular heart disease, MDS with anemia, CHF admitted s/p 3 falls at the NH and increasing SOB and anemia no fevers no cough no leukocytosis chest ct reviewed- findings c/w CHF/volume overload Hypercapneic hypoxemic respiratory failure with CHF doubt pneumonia clinically anemia/MDS valvular heart disease overall prognosis is poor d/w familly at bedside no need for antibiotics at this time d/c welsh when possible please call back if needed Problem List - Problems (1) Acute respiratory failure with hypoxia and hypercapnia Code(s): J96.01 - ACUTE RESPIRATORY FAILURE WITH HYPOXIA; J96.02 - ACUTE RESPIRATORY FAILURE WITH HYPERCAPNIA (2) CHF (congestive heart failure) Code(s): I50.9 - HEART FAILURE, UNSPECIFIED Qualifiers: Heart failure type: diastolic Heart failure chronicity: acute on chronic Qualified Code(s): I50.33 - Acute on chronic diastolic (congestive) heart failure (3) Anemia Code(s): D64.9 - ANEMIA, UNSPECIFIED Qualifiers: Anemia type: bone marrow failure (4) Myelodysplastic syndrome Code(s): D46.9 - MYELODYSPLASTIC SYNDROME, UNSPECIFIED
--- NOTE | 2017-05-20 18:46 | CONS ---
INFECTIOUS DISEASE CONSULTATION DATE OF CONSULTATION: DATE OF DICTATION: 05/20/2017 REQUESTING PHYSICIAN: The hospitalist service. HISTORY OF PRESENT ILLNESS: This is an 86-year-old woman with a past medical history of heart failure, myelodysplastic syndrome, multiple transfusions. Most recently, she was admitted to [facility] for a transfusion about 2 weeks ago. After that, she was [place] [facility]. While at the [facility], the family she reports she fell down 3 times, although she was essentially wheelchair bound. She was admitted with worsening shortness of breath. She denies any fevers or chills, any nausea or vomiting. She required BiPAP overnight, though now, she is on nasal cannula. Family reports she has been on oxygen at home for the last 3 years. PAST MEDICAL HISTORY: Notable for diastolic heart failure, severe aortic stenosis, COPD. She has a history of myelodysplastic syndrome with anemia and son reports gets transfusions monthly. She also has a history of COPD, anxiety, and depression. She denies any cardiac surgery in the past. FAMILY HISTORY: Noncontributory. SOCIAL HISTORY: She is . Her is 89. Prior to the admission at [place], they were living together at home. They live in a 2-story. They live on the ground floor, and their son and his live above them. There is no history of any recent travel. ALLERGIES: She has no known drug allergies. MEDICATIONS: As an outpatient include Demadex, K-Dur, Zaroxolyn, Atrovent, Celexa, Pulmicort, Xanax, and Tylenol. REVIEW OF SYSTEMS: She reports her breathing is improved. She has no fevers or chills. No nausea or vomiting. She has chronic shortness of breath. PHYSICAL EXAMINATION: General: She is awake and alert. Vital Signs: Temperature is 97.6, pulse is 79, blood pressure 102/54, respiratory rate is 20. She is saturating 94% on nasal cannula. HEENT: She is normocephalic. Her eyes are anicteric. She has no thrush. Neck: Supple. Lungs: Diminished breath sounds at the bases. Heart: Irregular. She has a 2/6 systolic ejection murmur. Abdomen: Soft, nontender. Extremities: Without edema. LABORATORY DATA: Labs are notable for white count of 4.6, hemoglobin 7.5, platelets are 259. BUN is 48 and creatinine 1.3. Chest CT, which I reviewed with the radiologist, shows cardiomegaly, interstitial pulmonary edema. She has bilateral pleural effusions. She as well has diffuse chest wall edema, also consistent with volume overload. In summary, this is an elderly woman who was admitted with: 1. Hypercapnic, hypoxemic respiratory failure with congestive heart failure. I doubt pneumonia clinically, and CAT scan is consistent with heart failure. 2. Anemia, myelodysplasia. 3. Valvular heart disease. Overall prognosis is poor. Discussed with family at length at the bedside. No need for antibiotics at this time. Would suggest discontinuing Zavala when possible. Please call back if needed. PIA MENDOZA M.D. [id number]
[2017-05-21] MEDS: ALBUTEROL SO4 2.5/IPRATROPIUM 0.5 INH SOL 3 ML VIAL.NEB. NEB SCH ×6 (04:00→20:30)
[2017-05-21] MEDS: ALPRAZolam 0.25 MG TABLET PO SCH ×3 (05:01→21:40)
[2017-05-21 08:45] LABS: HEMATOCRIT 24.2 % (32.4-45.2); HEMOGLOBIN 7.8 GM/dL (10.7-15.3); MCH 27.1 pg (25.7-33.7); MCHC 32.2 g/dl (32.0-36.0); MEAN CELL VOLUME 84.2 fl (80-96); MEAN PLT VOLUME 7.7 fl (7.5-11.1); PLATELET COUNT 284 K/MM3 (134-434); RBC 2.88 M/mm3 (3.60-5.2); RDW 19.3 % (11.6-15.6); WHITE BLOOD COUNT 5.2 K/mm3 (4.0-10.0)
[2017-05-21] MEDS: CITALOPRAM HYDROBROMIDE 10 MG TABLET (FP) PO SCH ×2 (09:19→21:40)
[2017-05-21] MEDS: FUROSEMIDE 40 MG/4 ML INJECTABLE VIAL IVPUSH SCH (09:20)
[2017-05-21] MEDS: metoPROLOL SUCCINATE 25 MG TAB.SR.24H (FP) PO SCH (09:20)
[2017-05-21] MEDS: APIXABAN 2.5 MG TABLET PO SCH ×2 (09:20→21:40)
--- NOTE | 2017-05-21 11:24 | PN ---
Progress Note, Physician Chief Complaint: Events noted Receiving respiratory treatment Dyspnea intermittently History of Present Illness: Patient was seen and examined. Awake and alert. Chart was reviewed Denies chest pain or palpitations Dyspnea as outlined - Current Medication List Current Medications: Active Medications Albuterol/Ipratropium (Duoneb -) 1 amp NEB Q4H [facility] Last Admin: 05/21/17 08:45 Dose: 1 amp Alprazolam (Xanax -) 0.25 mg PO TID [facility] Last Admin: 05/21/17 05:01 Dose: 0.25 mg Apixaban (Eliquis -) 2.5 mg PO BID [facility] Last Admin: 05/21/17 09:20 Dose: 2.5 mg Citalopram Hydrobromide (Celexa -) 5 mg PO BID [facility] Last Admin: 05/21/17 09:19 Dose: 5 mg Furosemide (Lasix Injection -) 40 mg IVPUSH DAILY [facility] Last Admin: 05/21/17 09:20 Dose: 40 mg Metoprolol Succinate (Toprol Xl -) 12.5 mg PO DAILY [facility] Last Admin: 05/21/17 09:20 Dose: Not Given - Objective Vital Signs: Vital Signs Temperature 97.5 F L 05/21/17 06:00 Pulse Rate 60 05/21/17 06:00 Respiratory Rate 20 05/21/17 06:00 Blood Pressure 120/58 05/21/17 06:00 O2 Sat by Pulse Oximetry (%) 95 05/20/17 21:00 Eyes: Yes: PERRL HENT: Yes: Atraumatic Neck: Yes: Supple Cardiovascular: Yes: Pulse Irregular, Murmur (SM), S1, S2 Respiratory: Yes: Diminished Gastrointestinal: Yes: Normal Bowel Sounds, Soft. No: Tenderness Edema: No Additional Findings/Remarks: - Review of Systems Constitutional: denies: Chills, Fever Cardiovascular: denies: Chest Pain, Palpitations, Shortness of Breath Respiratory: (+) Cough, (-) Hemoptysis, Orthopnea, PND, (+) SOB, SOB on Exertion Gastrointestinal: denies: Abdominal Pain, Rectal Bleeding, (-) Vomiting Genitourinary: denies urologic symptoms Neurological: denies: Dizziness, Headache, Seizure, Syncope Labs: CBC, BMP 05/21/17 08:11 Problem List - Problems (1) Acute respiratory failure with hypoxia and hypercapnia Code(s): J96.01 - ACUTE RESPIRATORY FAILURE WITH HYPOXIA; J96.02 - ACUTE RESPIRATORY FAILURE WITH HYPERCAPNIA (2) Anemia Code(s): D64.9 - ANEMIA, UNSPECIFIED Qualifiers: Anemia type: bone marrow failure (3) Atrial fibrillation with normal ventricular rate Code(s): I48.91 - UNSPECIFIED ATRIAL FIBRILLATION (4) COPD (chronic obstructive pulmonary disease) Code(s): J44.9 - CHRONIC OBSTRUCTIVE PULMONARY DISEASE, UNSPECIFIED Qualifiers: COPD type: unspecified COPD Qualified Code(s): J44.9 - Chronic obstructive pulmonary disease, unspecified (5) Myelodysplastic syndrome Code(s): D46.9 - MYELODYSPLASTIC SYNDROME, UNSPECIFIED (6) Pleural effusion due to congestive heart failure Code(s): I50.9 - HEART FAILURE, UNSPECIFIED Assessment/Plan 1. Acute Hypercapneic hypoxic respiratory failure 2. Acute on chronic diastolic heart failure and pulmonary HTN with pleural effusions 3. Persistent atrial fibrillation 4. COPD 5. Anemia referable to MDS 6. Recurrent UTI PLAN: 1. Transthoracic echocardiography to assess LV/RV and valvular function 2. IV diuresis with monitor renal function and electrolytes 3. Continue Toprol XL 12.5 qd with uptitration as tolerated 4. Continue Eliquis 2.5 bid given elevated stroke risk but with caution 5. Bronchodilator and O2 as needed 6. Empiric antibiotic course Further plans are to follow Nhan Teixeira MD
[2017-05-21 14:02] LABS: ANION GAP 9 (8-16); BLOOD UREA NITROGEN 55 mg/dL (7-18); CALCIUM 8.9 mg/dL (8.5-10.1); CHLORIDE 97 mmol/L (98-107); CO2 35 mmol/L (21-32); CREATININE 1.3 mg/dL (0.55-1.02); GLUCOSE,RANDOM 122 mg/dL (74-106); SODIUM 141 mmol/L (136-145)
--- NOTE | 2017-05-21 14:09 | PN ---
Physical Exam: SUBJECTIVE: Patient seen and examined. She is feeling better today, denies sob, cough, cp. OBJECTIVE: Vital Signs Period Temp Pulse Resp BP Sys/Frank Pulse Ox Last 24 Hr 97.5 F-98.4 F 60-79 18-22 102-120/52-69 95-95 PE Neuro: alert, awake, cn 2-12intact Pulm: scattered rhonchi anteriorly CV: s1 s2 irregular rate Abd: s nt nd + bs : welsh Ext: no le edema Laboratory Results - last 24 hr 05/21/17 05/21/17 05/21/17 08:11 08:11 13:25 WBC 5.2 RBC 2.88 L Hgb 7.8 L Hct 24.2 L MCV 84.2 MCH 27.1 MCHC 32.2 RDW 19.3 H Plt Count 284 MPV 7.7 PTT (Actin FS) 34.9 H D Sodium 141 Potassium 4.0 Chloride 97 L Carbon Dioxide 35 H Anion Gap 9 BUN 55 H Creatinine 1.3 H Random Glucose 122 H Calcium 8.9 Active Medications Generic Name Dose Route Start Last Admin Trade Name Freq PRN Reason Stop Dose Admin Albuterol/Ipratropium 1 amp 05/19/17 20:00 05/21/17 12:31 Duoneb - NEB 1 amp Q4H BLAA Administration Alprazolam 0.25 mg 05/19/17 16:15 05/21/17 05:01 Xanax - PO 0.25 mg TID BALA Administration Apixaban 2.5 mg 05/20/17 12:15 05/21/17 09:20 Eliquis - PO 2.5 mg BID BALA Administration Citalopram Hydrobromide 5 mg 05/19/17 22:00 05/21/17 09:19 Celexa - PO 5 mg BID BALA Administration Furosemide 40 mg 05/20/17 12:00 05/21/17 09:20 Lasix Injection - IVPUSH 40 mg DAILY [facility] Administration Metoprolol Succinate 12.5 mg 05/20/17 12:00 05/21/17 09:20 Toprol Xl - PO Not Given DAILY [facility] Assessment: 86 year old female with a PMH significant for heart failure, a fib, COPD, anemia requiring multiple transfusions, myelodysplastic syndrome, recurrent UTIs, anxiety and depression. Admitted for respiratory failure, acute on chronic diastolic heart failure Plan: 1. Hypercapneic hypoxic respiratory failure/pleural effusions - CT shows b/l pulmonary effusions, interstitial pulmonary edema - Continue NC - Bipap PRN 2. Acute on chronic diastolic heart failure - ECHO shows lvsf normal, RVSF mod reduced, severe TR, aortic sclerosis - Lasix 40mg IVP daily - Transition to PO tomorrow - Started metoprolol 12.5mg daily - DC welsh today 3. Atrial fibrillation - D/w son, pt had GI bleed in past and egd done at [place], ~2 yrs ago - Start eliquis 2.5mg BID - Monitor for bleeding 4. COPD - Duonebs 5. Myelodysplastic syndrome/Anemia - Hgb stable - Will monitor, transfuse for hgb <7 6. Recurrent UTIs - UA negative 7. Anxiety/depression - Celexa, xanax 0.25mg TID PRN 8. DVT - Eliquis 9. Physical therapy - Pt did get up with walker yesterday CODE STATUS: DNR/DNI Son Brett is HCP. Visit type - Emergency Visit Emergency Visit: Yes ED Registration Date: 05/19/17 Care time: The patient presented to the Emergency Department on the above date and was hospitalized for further evaluation of their emergent condition. - New Patient This patient is new to me today: No - Critical Care Critical Care patient: No
[2017-05-21] MEDS: LIDOCAINE 5% TOPICAL PATCH TP SCH (20:34)
[2017-05-21] MEDS: ACETAMINOPHEN 500 MG TABLET (FP) PO PRN (21:41)
[2017-05-21] MEDS ORDERED: LIDOCAINE PATCH REMOVAL MC SCH (22:00)
[2017-05-22] MEDS: ALBUTEROL SO4 2.5/IPRATROPIUM 0.5 INH SOL 3 ML VIAL.NEB. NEB SCH ×4 (00:30→11:13)
[2017-05-22] MEDS: ACETAMINOPHEN 500 MG TABLET (FP) PO PRN (05:37)
[2017-05-22] MEDS: ALPRAZolam 0.25 MG TABLET PO SCH (05:38)
[2017-05-22 07:54] LABS: HEMOGLOBIN 7.8 GM/dL (10.7-15.3); MCH 27.3 pg (25.7-33.7); MCHC 32.6 g/dl (32.0-36.0); MEAN CELL VOLUME 83.9 fl (80-96); MEAN PLT VOLUME 8.1 fl (7.5-11.1); PLATELET COUNT 272 K/MM3 (134-434); RBC 2.86 M/mm3 (3.60-5.2); RDW 19.6 % (11.6-15.6)
[2017-05-22 08:11] LABS: ANION GAP 9 (8-16); BLOOD UREA NITROGEN 52 mg/dL (7-18); CALCIUM 8.7 mg/dL (8.5-10.1); CHLORIDE 97 mmol/L (98-107); CO2 35 mmol/L (21-32); CREATININE 1.2 mg/dL (0.55-1.02); GLUCOSE,RANDOM 83 mg/dL (74-106); SODIUM 141 mmol/L (136-145)
--- NOTE | 2017-05-22 08:58 | PN ---
Progress Note, Physician History of Present Illness: Dyspnea resolved, remains in rate-controlled afib. - Current Medication List Current Medications: Active Medications Acetaminophen (Tylenol -) 500 mg PO Q6H PRN PRN Reason: PAIN LEVEL 6-10 Last Admin: 05/22/17 05:37 Dose: 500 mg Albuterol/Ipratropium (Duoneb -) 1 amp NEB Q4H [facility] Last Admin: 05/22/17 07:41 Dose: 1 amp Alprazolam (Xanax -) 0.25 mg PO TID [facility] Last Admin: 05/22/17 05:38 Dose: 0.25 mg Apixaban (Eliquis -) 2.5 mg PO BID [facility] Last Admin: 05/21/17 21:40 Dose: 2.5 mg Citalopram Hydrobromide (Celexa -) 5 mg PO BID [facility] Last Admin: 05/21/17 21:40 Dose: 5 mg Furosemide (Lasix Injection -) 40 mg IVPUSH DAILY [facility] Last Admin: 05/21/17 09:20 Dose: 40 mg Lidocaine (Lidoderm Patch -) 1 patch TP DAILY [facility] Last Admin: 05/21/17 20:34 Dose: Not Given Metoprolol Succinate (Toprol Xl -) 12.5 mg PO DAILY [facility] Last Admin: 05/21/17 09:20 Dose: Not Given Miscellaneous (Lidoderm Patch Removal) 1 each MC DAILY@2200 [facility] Last Admin: 05/21/17 21:39 Dose: Not Given - Objective Vital Signs: Vital Signs Temperature 97.4 F L 05/22/17 06:00 Pulse Rate 70 05/22/17 07:43 Respiratory Rate 20 05/22/17 06:00 Blood Pressure 115/60 05/22/17 06:00 O2 Sat by Pulse Oximetry (%) 99 05/22/17 07:43 Constitutional: Yes: No Distress, Calm, Thin Neck: Yes: Supple Cardiovascular: Yes: Pulse Irregular, Murmur (2/6 SM) Respiratory: Yes: Regular, Diminished, On Nasal O2 Gastrointestinal: Yes: Normal Bowel Sounds, Soft Edema: No Labs: CBC, BMP 05/22/17 06:15 05/22/17 06:15 INR, PTT INR 1.16 (0.82-1.09) H 05/19/17 10:55 - ....Imaging EKG: Report Reviewed (Tele: Rate-controlled afib) Problem List - Problems (1) Atrial fibrillation with normal ventricular rate Code(s): I48.91 - UNSPECIFIED ATRIAL FIBRILLATION (2) CHF (congestive heart failure) Code(s): I50.9 - HEART FAILURE, UNSPECIFIED Qualifiers: Heart failure type: diastolic Heart failure chronicity: acute on chronic Qualified Code(s): I50.33 - Acute on chronic diastolic (congestive) heart failure (3) COPD (chronic obstructive pulmonary disease) Code(s): J44.9 - CHRONIC OBSTRUCTIVE PULMONARY DISEASE, UNSPECIFIED Qualifiers: COPD type: unspecified COPD Qualified Code(s): J44.9 - Chronic obstructive pulmonary disease, unspecified (4) Pleural effusion due to congestive heart failure Code(s): I50.9 - HEART FAILURE, UNSPECIFIED (5) Myelodysplastic syndrome Code(s): D46.9 - MYELODYSPLASTIC SYNDROME, UNSPECIFIED (6) Anemia Code(s): D64.9 - ANEMIA, UNSPECIFIED Qualifiers: Anemia type: bone marrow failure (7) Acute respiratory failure with hypoxia and hypercapnia Code(s): J96.01 - ACUTE RESPIRATORY FAILURE WITH HYPOXIA; J96.02 - ACUTE RESPIRATORY FAILURE WITH HYPERCAPNIA Assessment/Plan 05/20/2017 Echo: Normal LV size and fxn, mild-mod decreased RV fxn, severe TR, mild LAE, mod-severe BRUCE 1. Acute Hypercapneic hypoxic respiratory failure resolving 2. Acute on chronic diastolic heart failure and pulmonary HTN with pleural effusions resolving 3. Persistent atrial fibrillation on NOAC 4. COPD 5. Anemia referable to MDS 6. Recurrent UTI PLAN: 1. Resume oral diuresis (Demadex 10 qd) with monitor renal function and electrolytes 3. Continue Toprol XL 12.5 qd with uptitration as tolerated 4. Continue Eliquis 2.5 bid given elevated stroke risk but with caution 5. Bronchodilator and O2 as needed, PT and d/c planning back to [place]
[2017-05-22] MEDS: FUROSEMIDE 40 MG/4 ML INJECTABLE VIAL IVPUSH SCH (09:09)
[2017-05-22] MEDS: metoPROLOL SUCCINATE 25 MG TAB.SR.24H (FP) PO SCH (09:09)
[2017-05-22] MEDS: APIXABAN 2.5 MG TABLET PO SCH (09:10)
[2017-05-22] MEDS: CITALOPRAM HYDROBROMIDE 10 MG TABLET (FP) PO SCH (09:10)
[2017-05-22] MEDS: LIDOCAINE 5% TOPICAL PATCH TP SCH (09:16)
[2017-05-22 10:15] VITALS: BP 112/54; PULSE 66; TEMP 97.5
[2017-05-22] MEDS ORDERED: ALPRAZolam 0.25 MG TABLET PO ONE (11:45)
--- NOTE | 2017-05-22 11:46 | DS ---
Physical Exam: SUBJECTIVE: Patient seen and examined OBJECTIVE: Vital Signs Period Temp Pulse Resp BP Sys/Frank Pulse Ox Last 24 Hr 97.4 F-98.3 F 57-70 18-20 108-125/52-60 94-99 PHYSICAL EXAM GENERAL: The patient is awake, alert, and fully oriented, in no acute distress. HEAD: Normal with no signs of trauma. EYES: PERRL, extraocular movements intact, sclera anicteric, conjunctiva clear. ENT: Ears normal, nares patent, oropharynx clear without exudates, moist mucous membranes. NECK: Trachea midline, full range of motion, supple. LUNGS: Breath sounds equal, clear to auscultation bilaterally, no wheezes, no crackles, no accessory muscle use. HEART: Regular rate and rhythm, S1, S2 without murmur, rub or gallop. ABDOMEN: Soft, nontender, nondistended, normoactive bowel sounds, no guarding, no rebound, no hepatosplenomegaly, no masses. EXTREMITIES: 2+ pulses, warm, well-perfused, no edema. NEUROLOGICAL: Cranial nerves II through XII grossly intact. Normal speech, gait not observed. PSYCH: Normal mood, normal affect. SKIN: Warm, dry, normal turgor, no rashes or lesions noted. LABS Laboratory Results - last 24 hr 05/21/17 05/22/17 05/22/17 13:25 06:15 06:15 WBC 5.0 RBC 2.86 L Hgb 7.8 L Hct 24.0 L MCV 83.9 MCH 27.3 MCHC 32.6 RDW 19.6 H Plt Count 272 MPV 8.1 Sodium 141 141 Potassium 4.0 4.0 Chloride 97 L 97 L Carbon Dioxide 35 H 35 H Anion Gap 9 9 BUN 55 H 52 H Creatinine 1.3 H 1.2 H Random Glucose 122 H 83 Calcium 8.9 8.7 HOSPITAL COURSE: Date of Admission:05/19/17 Date of Discharge: 05/22/17 Discharge Summary Reason For Visit: FALL Current Active Problems Acute respiratory failure with hypoxia and hypercapnia (Acute) Anemia (Acute) Aortic stenosis (Acute) Atrial fibrillation with normal ventricular rate (Acute) CHF (congestive heart failure) (Acute) COPD (chronic obstructive pulmonary disease) (Acute) Myelodysplastic syndrome (Acute) Pleural effusion due to congestive heart failure (Acute) Pneumonia (Acute) Condition: Stable - Instructions Diet, Activity, Other Instructions: Please return to the ED for any new, persistent, or worsening symptoms. Follow up with your PCP in 1 week Take home medications as directed Note changes: - Stop taking zaroxolyn - Start taking Eliquis 2.5mg BID, Metoprolol 12.5mg daily Referrals: Esteban Roblero [Non Staff, Medical] - Timothy Coreas [Non Staff, Medical] - Timothy Post MD [Staff Physician] - Disposition: LONG TERM FACILITY - Home Medications Comprehensive Discharge Medication List: Ambulatory Orders Acetaminophen [Tylenol] 650 mg PO Q6H PRN 05/19/17 Alprazolam [Xanax] 0.25 mg PO Q8H 05/19/17 Budesonide [Pulmicort 0.5 mg Nebulizer -] 1 neb NEB BID 05/19/17 Citalopram Hydrobromide [Celexa -] 5 mg PO BID 05/19/17 Ipratropium [place] [Atrovent Hfa] 2 puff IH BID 05/19/17 Potassium Chloride [K-Dur -] 10 meq PO DAILY 05/19/17 Torsemide [Demadex -] 10 mg PO DAILY 05/19/17 Apixaban [Eliquis -] 2.5 mg PO BID #30 tablet 05/22/17 Metoprolol Succinate [Toprol XL -] 12.5 mg PO DAILY #30 tab.sr.24h 05/22/17
--- NOTE | 2017-05-23 08:23 | EKG ---
Test Reason : Blood Pressure : / mmHG Vent. Rate : 051 BPM Atrial Rate : 058 BPM P-R Int : 000 ms QRS Dur : 092 ms QT Int : 416 ms P-R-T Axes : 000 147 -16 degrees QTc Int : 383 ms ATRIAL FIBRILLATION WITH SLOW VENTRICULAR RESPONSE RIGHT AXIS DEVIATION INCOMPLETE RIGHT BUNDLE BRANCH BLOCK POSSIBLE RIGHT VENTRICULAR HYPERTROPHY NONSPECIFIC T WAVE ABNORMALITY ABNORMAL ECG WHEN COMPARED WITH ECG OF 20-MAY-2017 09:15, NONSPECIFIC T WAVE ABNORMALITY NOW EVIDENT IN LATERAL LEADS QT HAS SHORTENED Confirmed by CHRISTO DIAS, EFREN ([id number]) on 05/23/2017 8:23:16 AM Referred By: Confirmed By:EFREN VILLAFUERTE MD
== END 2017-05-22 12:23 | DRG 291 ==
LOC: JER 09:49 → JERBED 12:40 → J4S 15:11
PROVIDERS: ADMIT Internal Medicine; ATTEND Nurse Practitioner Acute Care
DX: I50.33 Acute on chronic diastolic (congestive) heart failure (principal); J96.01 Acute respiratory failure with hypoxia; J96.02 Acute respiratory failure with hypercapnia; J18.9 Pneumonia, unspecified organism; I48.1 Persistent atrial fibrillation; N39.0 Urinary tract infection, site not specified; D46.9 Myelodysplastic syndrome, unspecified; D64.9 Anemia, unspecified; I35.0 Nonrheumatic aortic (valve) stenosis; J44.9 Chronic obstructive pulmonary disease, unspecified; F41.8 Other specified anxiety disorders; I27.20 Pulmonary hypertension, unspecified
CPT/HCPCS: 36415; 36600; 70450-TC; 71045-TC-FY; 71250-TC; 80048; 80053; 81003; 81015; 82550; 82803; 83605; 83735; 83880; 84100; 84484; 85025; 85027; 85610; 85730; 86850; 86900; 86901; 87040; 87086; 93005; 93010; 93306-TC; 94640; 94660; 97116-GP; 97161-GP; 99285-25; G0480; J1644

== ENCOUNTER 2017-05-23 05:50 | Emergency (ER) | payer OTHER ==
--- NOTE | 2017-05-23 05:59 | PDOC ---
History of Present Illness - General Stated Complaint: SOB - History of Present Illness Initial Comments: 05/23/17 05:56 86 yo F with h/o diastolic HF, severe aortic stenosis, A-fib ( on Eliquis), COPD , MDS, anxiety, and depression BIBA from [facility] on [address] for SOB. Per EMS, nursing staff called EMS because pt. was hypoxic 84% O2 on 4 L NC. EMS reports resolution of hypoxia on 5 L NC 94%. Patient reports stable SOB, and Lynn. On home O2 4 L NC. Denies N/V, F/C, CP, cough, abdominal pain, urinary complaints, leg swelling, lightheadedness, weakness, sensory changes. On Demadex, and compliant with home duoneb use. Recent [facility] admission (05/19-05/22) for hypercapnic, hypoxic resp failure. CT chest ( 05/21 ) with small layering left pleural effusion and rt small to mod pleural effusion. PMD Dr. Timothy Gómez. Past History - Past Medical History Allergies/Adverse Reactions: Allergies Allergy/AdvReac Type Severity Reaction Status Date / Time No Known Allergies Allergy Verified 05/23/17 05:54 Home Medications: Ambulatory Orders Acetaminophen [Tylenol] 650 mg PO Q6H PRN 05/19/17 Alprazolam [Xanax] 0.25 mg PO Q8H 05/19/17 Budesonide [Pulmicort 0.5 mg Nebulizer -] 1 neb NEB BID 05/19/17 Citalopram Hydrobromide [Celexa -] 5 mg PO BID 05/19/17 Ipratropium [place] [Atrovent Hfa] 2 puff IH BID 05/19/17 Potassium Chloride [K-Dur -] 10 meq PO DAILY 05/19/17 Torsemide [Demadex -] 10 mg PO DAILY 05/19/17 Apixaban [Eliquis -] 2.5 mg PO BID #30 tablet 05/22/17 Metoprolol Succinate [Toprol XL -] 12.5 mg PO DAILY 05/23/17 Anemia: Yes Cancer: Yes (myelodysplastic syndrome) COPD: Yes Psychiatric Problems: Yes (anxeity,depression) - Suicide/Smoking/Psychosocial Hx Smoking History: Unknown if ever smoked Hx Alcohol Use: No Drug/Substance Use Hx: No Substance Use Type: None Review of Systems - Review of Systems Comments:: 05/23/17 05:58 GENERAL/CONSTITUTIONAL: No fever or chills. No weakness. HEAD, EYES, EARS, NOSE AND THROAT: No change in vision. No ear pain or discharge. No sore throat. CARDIOVASCULAR: No chest pain or shortness of breath RESPIRATORY: + SOB. No cough, wheezing, or hemoptysis. GASTROINTESTINAL: No nausea, vomiting, diarrhea or constipation. GENITOURINARY: No dysuria, frequency, or change in urination. MUSCULOSKELETAL: No joint or muscle swelling or pain. No neck or back pain. SKIN: No rash NEUROLOGIC: No headache, vertigo, loss of consciousness, or change in strength/ sensation. ENDOCRINE: No increased thirst. No abnormal weight change HEMATOLOGIC/LYMPHATIC: No anemia, easy bleeding, or history of blood clots. ALLERGIC/IMMUNOLOGIC: No hives or skin allergy. *Physical Exam - Physical Exam Comments: 05/23/17 05:58 GENERAL: Awake, alert, and fully oriented, in no acute distress HEAD: No signs of trauma, normocephalic, atraumatic EYES: PERRLA, EOMI, sclera anicteric, conjunctiva clear ENT: Dry oral mucosa. Hearing grossly normal, nares patent, oropharynx clear without exudates. NECK: Normal ROM, supple, no lymphadenopathy, JVD, or masses LUNGS: Rales at BL LL bases. No distress, speaks full sentences. Absent Rhonci. HEART: Irregular rate , normal rhythm, normal S1 and S2, no murmurs, rubs or gallops, peripheral pulses normal and equal bilaterally. EXTREMITIES : Normal inspection, Normal range of motion, no edema. No clubbing or cyanosis. SKIN: Warm, Dry, normal turgor, no rashes or lesions noted ED Treatment Course - LABORATORY CBC & Chemistry Diagram: 05/23/17 06:29 05/23/17 06:29 Medical Decision Making - Medical Decision Making 86 yo F with h/o diastolic HF, severe aortic stenosis, A-fib ( on Eliquis), COPD , MDS, anxiety, and depression BIBA from [facility] on [address] for SOB and hypoxic 84% O2 on 4 L NC w/ resolution of hypoxia on 5 L NC 94%. Patient reports stable SOB, and Lynn. Pt. Denies N/V, F/C, CP, cough, abdominal pain, urinary complaints, leg swelling, lightheadedness, weakness, sensory changes. Recent [facility] admission (05/19-05/22) for hypercapnic, hypoxic resp failure. CT chest ( 05/21) with small layering left pleural effusion and rt. small to mod pleural effusion. PMD Dr. Timothy Gómez. Physical exam with BL rales at lung bases. HDS. 100 % 02 on 4 L NC. Patient SOB and hypoxia may be d/t unresolved acute on chronic CHF exacerbation vs. PNA. on Previous admission pt. was given Vanc and zosyn in ED, but not treated for CAP d/t absent clinical and physical findings. Will also consider COPD exacerbation. ACS/LA r/o. ED Course: CBC, CMP, Cardiac Pr, BNP EKG, CXR 05/23/17 06:13 EKG: A-fib w/ RvR. RAD, with RVH. TWI II, III, V1-V3. Unchanged from previous EKG ( 05/20/17) . 05/23/17 06:47 WBC: 5.9 H/H: 8.0/24.4 ( Baseline ~ 7.8/24.0) 05/23/17 06:48 CXR: Increased BL pleural fluid, infiltrative, and congestive changes. Somewhat worse than previous study on admission Patient currently stable on 4 L NC. No resp distress. 05/23/17 07:09 BNP: 7562 Trop: Neg Pt. signed out to Dr. Blanton. *DC/Admit/Observation/Transfer Diagnosis at time of Disposition: SOB (shortness of breath), Acute respiratory failure with hypoxia CHF (congestive heart failure) Qualifiers: Heart failure type: systolic Heart failure chronicity: acute on chronic Qualified Code(s): I50.23 - Acute on chronic systolic (congestive) heart failure - Discharge Dispostion Disposition: [facility] Condition at time of disposition: Stable Admit: No - Referrals Referrals: Timothy Gómez MD [Primary Care Provider] - - Patient Instructions Additional Instructions: You do not have a sign of infection in your lungs and your breathing was fine n 3L here in the hospital. Please maintain it at 3L at rehab. Please use your medications as prescribed. Please return to the ED if you have any new or worsening symptoms. - Post Discharge Activity
[2017-05-23 06:05] VITALS: BMI 29.2
--- NOTE | 2017-05-23 06:26 | PDOC ---
Attending Attestation - HPI HPI: 05/23/17 06:29 The patient is a 86 year old female, from [facility], with a significant past medical history of CHF, COPD, MDS, anemia with multiple transfusions, UTI, leukopenia, atrial fibrillation on eliquis, symptomatic anemia, who presents to the emergency department via EMS with, shortness of breath. EMS reports the [facility] staff notified 911 as the patients oxygen saturation on 4 LPM O2 was 84%. EMS states they administered O2 at 5 LPM with mild relief raising the patients oxygen saturation to 94%. Patient states she chronically has shortness of breath. Patient has a recent hospitalization here at [facility] for hypercapnic/ hypoxic respiratory failure from 05/19-05/22. She denies any recent chest pain. She denies any recent fever, chills, cough, headache or dizziness. She denies any nausea, vomit, constipation or diarrhea. She denies any recent dysuria, frequency, urgency or hematuria. Allergies: NKA PCP: Dr. Gómez Documentation prepared by Daniel Stewart, acting as medical billing supervisor for Hemant Schroeder DO. <Daniel Stewart - Last Filed: 05/23/17 06:29> - Resident Resident Name: Saurav Cristobal - Physicial Exam PE: 05/23/17 19:34 *Physical Exam General Appearance: Yes: Appropriately Dressed. No: Apparent Distress, Intoxicated HEENT: positive: EOMI, BRIAN, Normal ENT Inspection, Normal Voice, TMs Normal, Pharynx Normal. negative: Pale Conjunctivae, Photophobia, Scleral Icterus (R), Scleral Icterus (L) Neck: positive: Trachea midline, Normal Thyroid, Supple. negative: Tender, Rigid, Carotid bruit, Stridor, Lymphadenopathy (R), Lymphadenopathy (L), Thyromegaly Respiratory/Chest: positive: decreased Breath Sounds. negative: Chest Tender, Respiratory Distress, Accessory Muscle Use, Labored Respiration, RES, Crackles, Rales, Rhonchi, Stridor, Wheezing, Dullness Cardiovascular: positive: Regular Rhythm, Regular Rate, S1, S2. negative: Edema , JVD, Murmur, Bradycardia, Tachycardia Vascular Pulses: Dorsalis-Pedis (R): 2+, Doralis-Pedis (L): 2+ Gastrointestinal/Abdominal: positive: Normal Bowel Sounds, Flat, Soft. negative : Tender, Organomegaly, Pulsatile Mass, Increased Bowel Sounds, Decreased BS, Distended, Guarding, Rebound, Hernia, Hepatomegaly, Spleenomegaly Lymphatic: negative: Adenopathy, Tenderness Musculoskeletal: positive: Normal Inspection. negative: CVA Tenderness, Decreased Range of Motion Extremity: positive: Normal Capillary Refill, Normal Inspection, Normal Range of Motion, Pelvis Stable. negative: Tender, Pedal Edema, Swelling, Erythema Integumentary: positive: Normal Color, Dry, Warm. negative: Cyanotic, Erythema , Jaundice, Rash Neurologic: positive: gas furnace installer II-XII NML intact, Fully Oriented, Alert, Normal Mood/ Affect, Motor Strength 5/5. negative: EOM Palsy, Facial Droop, Sensory Deficit - Medical Decision Making 05/23/17 19:35 Pt treated and released <Hemant Schroeder - Last Filed: 05/23/17 19:35>
[2017-05-23 06:39] LABS: BASO % 1.1 % (0-2.0); EOS % 0.7 % (0-4.5); HEMATOCRIT 24.5 % (32.4-45.2); MCH 27.3 pg (25.7-33.7); MCHC 32.6 g/dl (32.0-36.0); MEAN CELL VOLUME 83.9 fl (80-96); MEAN PLT VOLUME 8.1 fl (7.5-11.1); MONO % 11.2 % (3.8-10.2); PLATELET COUNT 289 K/MM3 (134-434); RBC 2.92 M/mm3 (3.60-5.2); RDW 19.4 % (11.6-15.6); WHITE BLOOD COUNT 5.9 K/mm3 (4.0-10.0)
[2017-05-23 07:02] LABS: ALBUMIN 3.3 g/dl (3.4-5.0); ANION GAP 7 (8-16); BILIRUBIN,TOTAL 0.6 mg/dL (0.2-1.0); BLOOD UREA NITROGEN 47 mg/dL (7-18); CALCIUM 8.6 mg/dL (8.5-10.1); CHLORIDE 97 mmol/L (98-107); CO2 36 mmol/L (21-32); CREATININE 1.2 mg/dL (0.55-1.02); GLUCOSE,RANDOM 85 mg/dL (74-106); POTASSIUM 4.2 mmol/L (3.5-5.1); SGOT/AST 19 U/L (15-37); SGPT/ALT 13 U/L (12-78); SODIUM 140 mmol/L (136-145); TOT PROT 7.1 g/dl (6.4-8.2)
[2017-05-23 07:04] LABS: ALK PHOS 54 U/L (45-117); N-TERMINAL BNP 7562.78 pg/ml (5-450)
[2017-05-23] MEDS ORDERED: TORSEMIDE 10 MG TABLET PO ONE (08:27)
[2017-05-23 09:13] LABS: URINE APPEARANCE CLEAR; URINE BILIRUBIN NEGATIVE (NEGATIVE); URINE BLOOD NEGATIVE (NEGATIVE); URINE COLOR LTYELLOW; URINE GLUCOSE (UA) NEGATIVE (NEGATIVE); URINE KETONE NEGATIVE (NEGATIVE); URINE LEUK ESTERASE NEGATIVE (NEGATIVE); URINE NITRITE NEGATIVE (NEGATIVE); URINE PROTEIN NEGATIVE (NEGATIVE)
--- NOTE | 2017-05-23 13:18 | PDOC ---
*Physical Exam - Vital Signs Last Vital Signs Temp Pulse Resp BP Pulse Ox 98 F 59 L 21 155/46 98 05/23/17 07:19 05/23/17 10:00 05/23/17 10:00 05/23/17 10:00 05/23/17 10:00 <Moi Blanton - Last Filed: 05/23/17 13:13> - Vital Signs Last Vital Signs Temp Pulse Resp BP Pulse Ox 97.6 F 61 18 122/60 98 05/23/17 17:34 05/23/17 17:34 05/23/17 17:34 05/23/17 17:34 05/23/17 17:34 <JasmineMaynor vazquez - Last Filed: 05/25/17 07:39> ED Treatment Course - LABORATORY CBC & Chemistry Diagram: 05/23/17 06:29 05/23/17 06:29 - ADDITIONAL ORDERS Additional order review: Laboratory Results 05/23/17 05/23/17 09:00 06:29 Sodium 140 Potassium 4.2 Chloride 97 L Carbon Dioxide 36 H Anion Gap 7 L BUN 47 H Creatinine 1.2 H Creat Clearance w eGFR 42.40 Random Glucose 85 Calcium 8.6 Total Bilirubin 0.6 AST 19 ALT 13 Alkaline Phosphatase 54 Creatine Kinase 45 Troponin I 0.02 B-Natriuretic Peptide 7562.78 H Total Protein 7.1 Albumin 3.3 L Urine Color Ltyellow Urine Appearance Clear Urine pH 5.0 Ur Specific [place] 1.013 Urine Protein Negative Urine Glucose (UA) Negative Urine Ketones Negative Urine Blood Negative Urine Nitrite Negative Urine Bilirubin Negative Urine Urobilinogen 2.0 H Ur Leukocyte Esterase Negative 05/23/17 06:29 RBC 2.92 L MCV 83.9 MCHC 32.6 RDW 19.4 H MPV 8.1 Neutrophils % 81.0 Lymphocytes % 6.0 L D Monocytes % 11.2 H Eosinophils % 0.7 D Basophils % 1.1 - Medications Given in the ED: ED Medications Discontinued Medications Generic Name Dose Route Start Last Admin Trade Name Freq PRN Reason Stop Dose Admin Torsemide 10 mg 05/23/17 08:27 05/23/17 10:00 Demadex - PO 05/23/17 08:28 10 mg NOW ONE Administration <Moi Blanton - Last Filed: 05/23/17 13:13> - LABORATORY CBC & Chemistry Diagram: 05/23/17 06:29 05/23/17 06:29 - ADDITIONAL ORDERS Additional order review: 05/23/17 09:00 Urine Culture - Final Urine - Urine - Catheterized NO GROWTH OBTAINED 05/23/17 06:29 RBC 2.92 L MCV 83.9 MCHC 32.6 RDW 19.4 H MPV 8.1 Neutrophils % 81.0 Lymphocytes % 6.0 L D Monocytes % 11.2 H Eosinophils % 0.7 D Basophils % 1.1 - Medications Given in the ED: ED Medications Discontinued Medications Generic Name Dose Route Start Last Admin Trade Name Freq PRN Reason Stop Dose Admin Torsemide 10 mg 05/23/17 08:27 05/23/17 10:00 Demadex - PO 05/23/17 08:28 10 mg NOW ONE Administration <Maynor Ferraro - Last Filed: 05/25/17 07:39> Medical Decision Making - Medical Decision Making Patient signed out originally with concern for PNA and CHF exacerbation. Spoke to [facility] and they will have an PACK WORKER follow up with her at her rehab facility over the new two days. Patient did not Desat past 93% at any point during vigorous conversation and labs were all WNL without sign of infection on them or imaging. Her CXR only demonstrated slightly worsened pleural effusions and patient tolerated her torsemide well. Will DC to her rehab facility with her regular medications. 05/23/17 13:13 <Moi Blanton - Last Filed: 05/23/17 13:13> - Medical Decision Making 05/23/17 11:38 pt feeling improved pt at baseline sat on 3L given her baseline dose of torsimide no acute respiratory distress case was dw PACK WORKER Ted, will have [facility] PACK WORKER reassess the pt tomorrow in [facility] to ensures she is feeling better. <Maynor Ferraro - Last Filed: 05/25/17 07:39> *DC/Admit/Observation/Transfer - Discharge Dispostion Admit: No <Moi Blanton - Last Filed: 05/23/17 13:13> <Maynor Ferraro - Last Filed: 05/25/17 07:39> Diagnosis at time of Disposition: SOB (shortness of breath), Acute respiratory failure with hypoxia CHF (congestive heart failure) Qualifiers: Heart failure type: systolic Heart failure chronicity: acute on chronic Qualified Code(s): I50.23 - Acute on chronic systolic (congestive) heart failure - Discharge Dispostion Disposition: NURSING HOME FACILITY Condition at time of disposition: Stable - Referrals Referrals: Timothy Gómez MD [Primary Care Provider] - - Patient Instructions Additional Instructions: You do not have a sign of infection in your lungs and your breathing was fine n 3L here in the hospital. Please maintain it at 3L at rehab. Please use your medications as prescribed. Please return to the ED if you have any new or worsening symptoms. - Post Discharge Activity
[2017-05-23 17:35] VITALS: BP 122/60; PULSE 61; TEMP 97.6
== END 2017-05-23 17:49 ==
LOC: JER 05:50 → SUPCPDRO 05:50 → JER 17:49
DX: J96.91 Respiratory failure, unspecified with hypoxia (principal); I50.23 Acute on chronic systolic (congestive) heart failure; I48.91 Unspecified atrial fibrillation; Z79.01 Long term (current) use of anticoagulants; J44.9 Chronic obstructive pulmonary disease, unspecified; F41.9 Anxiety disorder, unspecified; F32.9 Major depressive disorder, single episode, unspecified; I35.0 Nonrheumatic aortic (valve) stenosis; D47.1 Chronic myeloproliferative disease
CPT/HCPCS: 36415; 71045-TC-FY; 80053; 81003; 82550; 83880; 84484; 85025; 87086; 99285-25